=== PATIENT | male | born 1975 | race African-American/Black ===

== ENCOUNTER 2018-10-11 02:43 | Emergency (ER) | payer OTHER ==
[2018-10-11] MEDS ORDERED: IBUPROFEN 600 MG TAB PO ONE (03:13)
--- NOTE | 2018-10-11 03:21 | EDPHY ---
H & P Stated Complaint: soar throat Time Seen by Provider: 10/11/18 03:07 HPI/ROS: Chief Complaint: Throat pain HPI: 43-year-old male's presenting complaining of 2 days of throat pain, pain with swallowing, scratchy voice. No cough. Has been clearing his throat quite a bit. No nasal congestion. No fevers or chills. No chest pain or shortness of breath. No nausea or vomiting. He is able to swallow although is a bit painful. He has not taken any medicine for this. No difficulty breathing. ROS: 10 systems were reviewed and were negative except those elements noted in the HPI. PMH: Denies Social History: No smoking, no alcohol, no recreational drug use Family History: non-contributory Physical Exam: Gen: Awake, Alert, No Distress, voice is normal HEENT: Nose: no rhinorrhea Eyes: PERRLA, EOMI Mouth: Moist mucosa mild oral pharyngeal erythema without edema or exudate Neck: Supple, no JVD, no masses, no cervical lymphadenopathy Ext: no edema, non-tender Skin: no rash Neuro: CN II-XII intact, Sensation grossly intact, Strength 5/5 in bilateral upper and lower extremities - Personal History Current Tetanus Diphtheria and Acellular Pertussis (TDAP): Yes - Medical/Surgical History Hx Asthma: No Hx Chronic Respiratory Disease: No Hx Diabetes: No Hx Cardiac Disease: No Hx Renal Disease: No Hx Cirrhosis: No Hx Alcoholism: No Hx HIV/AIDS: No Hx Splenectomy or Spleen Trauma: No Other PMH: appendectomy - Social History Smoking Status: Never smoked Constitutional: Initial Vital Signs Temperature (C) 36.7 C 10/11/18 02:46 Heart Rate 88 10/11/18 02:46 Respiratory Rate 16 10/11/18 02:46 Blood Pressure 167/110 H 10/11/18 02:46 O2 Sat (%) 96 10/11/18 02:46 O2 Delivery Mode Room Air Allergies/Adverse Reactions: cigarette smoke Allergy (Verified 10/11/18 02:46) msg Allergy (Uncoded 10/11/18 02:46) Home Medications: Medication Instructions Recorded NK [No Known Home Meds] 10/11/18 Medical Decision Making ED Course/Re-evaluation: 43-year-old male with viral URI type symptoms. At his request I did rapid strep test which was negative. Patient referred to [facility] for outpatient follow-up. Alternate ibuprofen with acetaminophen every 4 hr, plenty of fluids, plenty of rest. No evidence of acute if abscess or angioedema. - Data Points Laboratory Results: 10/11/18 10/11/18 Unknown 03:10 Group A Strep Screen NEGATIVE (NEGATIVE) Group A Strep DNA Pending Medications Given: Discontinued Medications Ibuprofen (Motrin) 600 mg PO EDNOW ONE Stop: 10/11/18 03:14 Last Admin: 10/11/18 03:18 Dose: 600 mg Departure - Departure Disposition: Home, Routine, Self-Care Clinical Impression: Viral URI Condition: Good Instructions: Upper Respiratory Infection (ED) Additional Instructions: Alternate acetaminophen (1000 mg) with ibuprofen (400 mg) every 4 hours as needed for fevers, chills, aches or pain. Follow up at the [facility] in 2-3 days for further evaluation. Referrals: [facility],. [Clinic] - As per Instructions
[2018-10-11 04:38] VITALS: BP 163/105
== END 2018-10-11 05:30 | disposition home or self-care (01) ==
DX: J06.9 Acute upper respiratory infection, unspecified (principal)